=== PATIENT | male | born 1950 | race Caucasian/White ===

== ENCOUNTER 2016-12-05 06:44 | Day surgery (SDC) | payer OTHER ==
[~2016-12-05] VITALS: Ht 180.3 cm; Wt 97.2 kg
[2016-12-05 08:21] VITALS: Ht 180.3 cm; Wt 97.2 kg
[2016-12-05] MEDS ORDERED: KET2CR15 TOP (08:33)
[2016-12-05] MEDS ORDERED: FLU60SYR IM (08:33)
[2016-12-05] MEDS ORDERED: losartan PO (08:33)
[2016-12-05] MEDS ORDERED: HYDR12.58 PO (08:33)
[2016-12-05] MEDS ORDERED: AMO500 PO (08:33)
[2016-12-05] MEDS ORDERED: PANT40TA4 PO (08:33)
[2016-12-05] MEDS ORDERED: SUDOGEST PO (08:33)
[2016-12-05 08:40] VITALS: BP 136/91; PULSE 73; RESP 24
[2016-12-05] MEDS ORDERED: LIDOCAINE 4% SOLUTION 50 ML BTL ONE (08:49)
[2016-12-05] MEDS ORDERED: MIDAZOLAM 1 MG/ML 2 ML INJ ONE ×2 (09:45)
[2016-12-05] MEDS ORDERED: FENTAnyl 50 MCG/ML VIAL ONE (09:45)
--- NOTE | 2016-12-05 09:52 | GILP ---
DATE OF PROCEDURE: 12/05/2016 NAME OF PROCEDURE: Esophagogastroduodenoscopy. PREOPERATIVE DIAGNOSIS: Patient presenting with history of abdominal pain unresponsive to routine t herapy. Patient previously known to have a gastric ulcer. Rule out peptic ulcer disease. POSTOPERATIVE DIAGNOSES: Multiple antral erosions were noted. CLOtest was performed from the antru m, the lesser curvature and the fundus. Duodenal biopsies were done. DESCRIPTION OF PROCEDURE: After the informed written consent was obtained, the patient was asked to lie on the left lateral side. The patient was given 3 mg Versed and 75 mcg of fentanyl as intraven ous anesthesia. When the patient became somnolent, the Olympus video upper endoscope was introduced into the orophar ynx, then into the esophagus. Esophagus appeared normal with no mucosal abnormality. Scope at this time was advanced into the stomach. Multiple erosions were noted in the antrum. Actually one of t hem appeared like a superficial gastric ulcer. Rest of the stomach appeared normal including the fu ndus. At this time, biopsy was done from the antrum, the lesser curvature and the fundus to rule ou t H. pylori infection. The duodenum appeared normal; however, biopsies were obtained from the third part of the duodenum to rule out celiac sprue, because of the history that patient has diarrhea. S cope at this time was withdrawn and no additional abnormalities detected and the procedure was termi nated. PLAN: Recommend proton pump inhibitor therapy and wait for the pathology report. Dictated By: KIMBERLY MCCLENDON/NTS Conf#: [id number] DID#: [id number] CC: DERRICK WEINSTEIN; KIMBERLY BARTHOLOMEW MD;*End*
[2016-12-05 10:00] VITALS: BP 112/78; PULSE 76; RESP 18
--- NOTE | 2016-12-05 10:43 | GILP ---
DATE OF PROCEDURE: NAME OF PROCEDURE: Colonoscopy and biopsy. PREOPERATIVE DIAGNOSIS: Patient presented with a history of rectal bleeding, a history of diarrhea. Rule out colitis, colorectal neoplasm, arteriovenous malformation microscopic colitis, etc. POSTOPERATIVE DIAGNOSES: 1. Scattered diverticula noted all along the colon up to the cecum. 2. Minimal external hemorrhoids. 3. No neoplasm noted. No colitis noted. Biopsies were done to rule out Helicobacter pylori infect ion. DESCRIPTION OF PROCEDURE: After informed written consent was obtained the patient was asked to lie on the left lateral side and 3 mg of Versed and 75 mcg of fentanyl was given as intravenous anesthes ia. When the patient became somnolent, the Olympus video colonoscope was introduced into the rectum and the scope was advanced all the way to the cecum. No polyps and no colitis noted. Biopsies were don e in a random fashion to rule out microscopic colitis. On the way out, retroflexion was performed. No internal hemorrhoids were noted. When the scope was withdrawn, external hemorrhoids were noted, and the procedure was terminated. PLAN: Recommend to wait for the pathology report. If the patient were to bleed, recommend Anusol-HC suppositories, 1 into the rectum twice a day for 10 days. Dictated By: KIMBERLY MCCLENDON/EMILIE Conf#: [id number] DID#: [id number] CC: ? Romeo;*End*
== END 2016-12-05 09:41 | disposition home or self-care (01) ==
LOC: GIL 06:44
PROVIDERS: ATTEND Internal Medicine Gastroenterology
DX: Z12.11 Encounter for screening for malignant neoplasm of colon (principal); K64.4 Residual hemorrhoidal skin tags
CPT/HCPCS: 43239; 45378; 88305; 88312; J2250; J3010